=== PATIENT | female | born 1990 | race Caucasian/White ===

== ENCOUNTER 2016-09-16 17:32 | Emergency (ER) | payer MEDICARE ==
[~2016-09-16] VITALS: Wt 86.2 kg
[2016-09-16 18:33] LABS: BASO % 0.1 % (0.0-1.0); EOS % 0.4 % (1.0-4.0); HEMATOCRIT 34.9 % (37.0-47.0); HEMOGLOBIN 12.1 g/dl (12.0-16.0); LYMPH # 1.8 10*3/uL (1.3-4.4); LYMPH % 21.6 % (27.0-41.0); MEAN CELL VOLUME 83.9 fl (81.0-99.0); MEAN CORPUSCULAR HGB 29.1 pg (27.0-31.0); MEAN CORPUSCULAR HGB CONC 34.7 g/dl (33.0-37.0); MEAN PLATELET VOLUME 11.4 fl (9.6-12.3); MONO # 0.6 10*3/uL (0.1-1.0); MONO % 7.5 % (3.0-9.0); PLATELET COUNT AUTOMATED 245 10*3/uL (130-400); RED BLOOD COUNT 4.16 10*6/uL (4.10-5.10); WHITE BLOOD COUNT 8.5 10*3/uL (4.8-10.8)
[2016-09-16 18:48] LABS: ALBUMIN 3.1 gm/dl (3.1-4.5); ALKALINE PHOSPHATASE 127 U/L (45-117); BILIRUBIN, TOTAL 0.2 mg/dl (0.2-1.0); BUN 9 mg/dl (7-24); CARBON DIOXIDE 25 mmol/L (21-32); CHLORIDE 106 mmol/L (98-107); EST GLOM FILT AFRICAN AMERICAN > 60 ml/min; GLUCOSE 85 mg/dL (65-99); POTASSIUM 3.5 mmol/L (3.5-5.1); SGOT/AST 19 IU/L (3-35); SGPT/ALT 15 U/L (12-78); SODIUM 138 mmol/L (136-145); TOTAL PROTEIN 7.3 gm/dL (6.4-8.2)
[2016-09-16 19:27] LABS: BILIRUBIN NEGATIVE (NEGATIVE); BLOOD 3+ (NEGATIVE); CLARITY SL CLOUDY (CLEAR); COLOR YELLOW (YELLOW); GLUCOSE NEGATIVE (NEGATIVE); KETONE NEGATIVE (NEGATIVE); LEUKO ESTERASE 3+ (NEGATIVE); NITRITE NEGATIVE (NEGATIVE); PH 5.5 (5.0-9.0); PROTEIN TRACE (NEGATIVE); SPECIFIC GRAVITY >= 1.030 (1.005-1.030); UROBILINOGEN 0.2 E.U./dl (0.2-1.0)
[2016-09-16 19:33] LABS: BACTERIA 4+; URINE REFLEX COMMENT YES (NO)
[2016-09-16 19:34] LABS: WBC 51-100 wbc/hpf (0-5)
[2016-09-16 19:35] LABS: RBC 31-40 rbc/hpf (0-2)
[2016-09-16 19:45] VITALS: BP 126/75
[2016-09-16] MEDS ORDERED: BACTRIM DS 8001 TA1 PO (19:57)
== END 2016-09-16 20:13 | disposition home or self-care (01) ==
LOC: ED 17:32
PROVIDERS: Student in an Organized Health Care Education/Training Program
DX: N39.0 Urinary tract infection, site not specified (principal); R53.1 Weakness; R07.89 Other chest pain; R42 Dizziness and giddiness

== ENCOUNTER 2017-01-09 12:50 | Emergency (ER) | payer MEDICARE ==
[~2017-01-09] VITALS: Ht 170.1 cm; Wt 72.6 kg
[~2017-01-09 12:50] MED LIST: BACTRIM DS 8001 TA1 PO
[2017-01-09 13:25] VITALS: BP 131/66
[2017-01-09] MEDS ORDERED: CEPHALEXIN500 M1 PO (13:53)
[2017-01-09] MEDS ORDERED: NAPROSYN500 MG PO (13:53)
== END 2017-01-09 15:07 | disposition home or self-care (01) ==
LOC: ED 12:50
DX: H60.393 Other infective otitis externa, bilateral (principal); R59.0 Localized enlarged lymph nodes

== ENCOUNTER → 2017-01-22 | Emergency (ER) | payer MEDICARE ==
[~2017-01-22] VITALS: Ht 170.1 cm; Wt 93.9 kg
[~2017-01-22] MED LIST changes: +CEPHALEXIN500 M1 PO; +DOXYCYCLINE100 M3 PO; +NAPROSYN500 MG PO
[2017-01-22 12:16] VITALS: BP 118/80
== END ==
LOC: ED 12:11
DX: A64 Unspecified sexually transmitted disease (principal)

== ENCOUNTER 2017-02-03 20:13 | Emergency (ER) | payer MEDICARE, MEDICAID ==
[~2017-02-03] VITALS: Ht 172.7 cm; Wt 92.1 kg
[2017-02-03 20:32] VITALS: BP 136/75
[2017-02-03 20:45] LABS: BILIRUBIN NEGATIVE (NEGATIVE); BLOOD 2+ (NEGATIVE); CLARITY SL CLOUDY (CLEAR); COLOR YELLOW (YELLOW); GLUCOSE NEGATIVE (NEGATIVE); KETONE TRACE (NEGATIVE); LEUKO ESTERASE 2+ (NEGATIVE); NITRITE NEGATIVE (NEGATIVE); SPECIFIC GRAVITY 1.025 (1.005-1.030); UROBILINOGEN 0.2 E.U./dl (0.2-1.0)
[2017-02-03 20:54] LABS: BACTERIA 3+; EPITHELIAL CELLS 21-30
[2017-02-03 20:56] LABS: RBC 21-30 rbc/hpf (0-2)
[2017-02-03 20:57] LABS: WBC 31-40 wbc/hpf (0-5)
[2017-02-03] MEDS ORDERED: MACROBID100 M1 PO (21:44)
== END 2017-02-03 21:09 | disposition home or self-care (01) ==
LOC: ED 20:13
PROVIDERS: Student in an Organized Health Care Education/Training Program
DX: B37.3 Candidiasis of vulva and vagina (principal); N39.0 Urinary tract infection, site not specified

== ENCOUNTER → 2021-09-08 | Outpatient (CLI) | payer MEDICARE ==
[~2021-09-08] MED LIST changes: +MACROBID100 M1 PO
[2021-09-08 16:44] LABS: BUN 13 mg/dl (7-24); CREATININE 0.96 mg/dL (0.55-1.02)
== END | disposition home or self-care (01) ==
LOC: CT 16:00 → LAB 16:06
PROVIDERS: ATTEND Nurse Practitioner Family
DX: N26.1 Atrophy of kidney (terminal) (principal)

== ENCOUNTER 2022-04-09 10:43 | Emergency (ER) | payer OTHER ==
[~2022-04-09] VITALS: Ht 172.7 cm; Wt 108.9 kg
[2022-04-09 10:54] VITALS: BP 134/82
[2022-04-09 11:02] LABS: BILIRUBIN Negative (Negative); BLOOD 3+ (Negative); CLARITY Cloudy (Clear); COLOR Orange (Yellow); GLUCOSE Negative (Negative); KETONE Trace (Negative); LEUKO ESTERASE 2+ (Negative); NITRITE Negative (Negative); SPECIFIC GRAVITY 1.025 (1.001-1.030)
[2022-04-09 11:20] LABS: BACTERIA 3+; EPITHELIAL CELLS TNTC; RBC TNTC rbc/hpf (0-2); WBC TNTC wbc/hpf (0-5)
[2022-04-09] MEDS ORDERED: CIPRO500 MG PO (11:30)
== END 2022-04-09 11:36 | disposition home or self-care (01) ==
LOC: ED 10:43
PROVIDERS: Nurse Practitioner Family
DX: N39.0 Urinary tract infection, site not specified (principal); F31.9 Bipolar disorder, unspecified

== ENCOUNTER 2022-10-03 19:07 | Emergency (ER) | payer OTHER ==
[~2022-10-03] VITALS: Ht 172.7 cm; Wt 110.2 kg
[~2022-10-03 19:07] MED LIST changes: +CIPRO500 MG PO
[2022-10-03 19:26] VITALS: BP 88/59
[2022-10-03 20:05] LABS: BASO % 0.3 % (0.0-1.0); EOS # 0.1 10*3/uL (0.0-0.4); EOS % 0.6 % (1.0-4.0); HEMATOCRIT 40.8 % (37.0-47.0); LYMPH # 2.9 10*3/uL (1.3-4.4); LYMPH % 28.6 % (27.0-41.0); MEAN CELL VOLUME 85.5 fl (81.0-99.0); MEAN CORPUSCULAR HGB 29.4 pg (27.0-31.0); MEAN CORPUSCULAR HGB CONC 34.3 g/dl (33.0-37.0); MONO # 0.6 10*3/uL (0.1-1.0); MONO % 5.4 % (3.0-9.0); NEUT # 6.5 10*3/uL (2.3-7.9); NEUT % 64.8 % (47.0-73.0); PLATELET COUNT AUTOMATED 270 10*3/uL (130-400); RED BLOOD COUNT 4.77 10*6/uL (4.10-5.10); RED CELL DISTRI WIDTH 13.2 % (0-14.5); WHITE BLOOD COUNT 10.1 10*3/uL (4.8-10.8)
[2022-10-03 20:08] LABS: BILIRUBIN Negative (Negative); BLOOD 3+ (Negative); CLARITY Cloudy (Clear); COLOR Orange (Yellow); GLUCOSE Negative (Negative); KETONE Negative (Negative); LEUKO ESTERASE 1+ (Negative); NITRITE Negative (Negative); PH 6.5 (4.5-8.0)
[2022-10-03 20:17] LABS: BACTERIA 1+; RBC 41-50 rbc/hpf (0-2)
[2022-10-03 20:20] LABS: ACT PARTIAL THROMBO TIME 29.9 SECONDS (20.0-32.1); INTERNATIONAL NORM RATIO 0.9 (2.0-3.5)
[2022-10-03 20:31] LABS: ALKALINE PHOSPHATASE 116 U/L (46-116); BUN 12 mg/dl (9-23); CHLORIDE 108 mmol/L (98-107); LIPASE 36 U/L (12-53); POTASSIUM 3.8 mmol/L (3.4-5.1); SGPT/ALT 27 U/L (10-49); TOTAL PROTEIN 6.9 gm/dL (6.0-8.0)
[2022-10-03] MEDS ORDERED: CIPRO500 MG PO (22:56)
== END 2022-10-03 23:04 | disposition home or self-care (01) ==
LOC: ED 19:07
PROVIDERS: Internal Medicine
DX: N39.0 Urinary tract infection, site not specified (principal); Z79.2 Long term (current) use of antibiotics; Z79.899 Other long term (current) drug therapy

== ENCOUNTER 2023-05-10 14:23 | Emergency (ER) | payer OTHER, MEDICARE, MEDICAID ==
[~2023-05-10] VITALS: Ht 170.1 cm; Wt 118.4 kg
[2023-05-10 14:35] VITALS: BP 136/90
== END 2023-05-10 17:06 | disposition home or self-care (01) ==
LOC: ED 14:23
DX: S63.501A Unspecified sprain of right wrist, initial encounter (principal); F31.9 Bipolar disorder, unspecified; M25.551 Pain in right hip; M79.631 Pain in right forearm; Z87.891 Personal history of nicotine dependence; W01.10XA Fall on same level from slipping, tripping and stumbling with subsequent striking against unspecified object, initial encounter; Y93.89 Activity, other specified; Y92.89 Other specified places as the place of occurrence of the external cause; Y99.0 Civilian activity done for income or pay

== ENCOUNTER 2023-08-13 16:37 | Emergency (ER) | payer MEDICARE, MEDICAID ==
[~2023-08-13] VITALS: Ht 170.1 cm
[2023-08-13 16:45] VITALS: BP 137/79
[2023-08-13] MEDS ORDERED: AMOX-CLAV 875-1 EACH PO (16:53)
[2023-08-13] MEDS ORDERED: Tdap Vaccine 0.5 ML SYR (Adult Vaccine) IM ONE (16:55)
[2023-08-13] MEDS ORDERED: ACETAMINOPHEN 325 MG TAB PO ONE (16:55)
== END 2023-08-13 17:05 | disposition home or self-care (01) ==
LOC: ED 16:37
DX: S91.332A Puncture wound without foreign body, left foot, initial encounter (principal); Z79.2 Long term (current) use of antibiotics; Z79.899 Other long term (current) drug therapy; W22.09XA Striking against other stationary object, initial encounter; Y93.89 Activity, other specified; Y92.89 Other specified places as the place of occurrence of the external cause; Y99.8 Other external cause status

== ENCOUNTER → 2023-12-28 | Outpatient (CLI) | payer MEDICARE, MEDICAID ==
[~2023-12-28] MED LIST changes: +AMOX-CLAV 875-1 EACH PO
== END | disposition home or self-care (01) ==
LOC: US 08:21
PROVIDERS: ATTEND Nurse Practitioner Family
DX: R16.0 Hepatomegaly, not elsewhere classified (principal); K76.0 Fatty (change of) liver, not elsewhere classified; Z23 Encounter for immunization; E78.2 Mixed hyperlipidemia; R10.9 Unspecified abdominal pain

== ENCOUNTER 2024-02-29 21:20 | Emergency (ER) | payer MEDICARE, MEDICAID ==
[~2024-02-29] VITALS: Ht 170.1 cm; Wt 125.2 kg
[2024-02-29 21:26] VITALS: BP 121/58
[2024-02-29 21:58] LABS: BILIRUBIN Negative (Negative); BLOOD 3+ (Negative); CLARITY Cloudy (Clear); COLOR Yellow (Yellow); GLUCOSE Negative (Negative); KETONE Negative (Negative); LEUKO ESTERASE 2+ (Negative); NITRITE Negative (Negative); PH 6.5 (4.5-8.0)
[2024-02-29 22:00] LABS: BASO % 0.3 % (0.0-1.0); EOS # 0.1 10*3/uL (0.0-0.4); EOS % 1.2 % (1.0-4.0); HEMATOCRIT 41.9 % (37.0-47.0); MEAN CELL VOLUME 87.3 fl (81.0-99.0); MEAN CORPUSCULAR HGB 28.8 pg (27.0-31.0); MEAN CORPUSCULAR HGB CONC 32.9 g/dl (33.0-37.0); MEAN PLATELET VOLUME 11.1 fl (9.6-12.3); MONO # 0.7 10*3/uL (0.1-1.0); MONO % 6.2 % (3.0-9.0); NEUT # 7.7 10*3/uL (2.3-7.9); NEUT % 64.5 % (47.0-73.0); PLATELET COUNT AUTOMATED 294 10*3/uL (130-400); RED CELL DISTRI WIDTH 12.9 % (0-14.5); WHITE BLOOD COUNT 11.9 10*3/uL (4.8-10.8)
[2024-02-29 22:15] LABS: BUN 14 mg/dl (9-23); CHLORIDE 106 mmol/L (98-107); POTASSIUM 3.8 mmol/L (3.4-5.1)
[2024-02-29 22:25] LABS: WBC 31-40 wbc/hpf (0-5)
[2024-02-29] MEDS ORDERED: Ciprofloxacin Hydrochloride 500 MG TAB PO ONE (22:25)
[2024-02-29] MEDS ORDERED: CIPRO500 MG PO (22:34)
== END 2024-02-29 22:38 | disposition home or self-care (01) ==
LOC: ED 21:20
PROVIDERS: Internal Medicine
DX: N39.0 Urinary tract infection, site not specified (principal); Z79.899 Other long term (current) drug therapy

== ENCOUNTER 2024-07-17 21:42 | Emergency (ER) | payer MEDICAID ==
[~2024-07-17] VITALS: Ht 170.1 cm; Wt 119.7 kg
[2024-07-17 21:44] VITALS: BP 141/74
[2024-07-17] MEDS ORDERED: SODIUM CHLORIDE 0.9% 1,000 ML IV ONE (21:50)
[2024-07-17 22:02] LABS: BASO % 0.2 % (0.0-1.0); EOS # 0.1 10*3/uL (0.0-0.4); EOS % 1.2 % (1.0-4.0); HEMATOCRIT 40.8 % (37.0-47.0); MEAN CELL VOLUME 83.6 fl (81.0-99.0); MEAN CORPUSCULAR HGB 28.1 pg (27.0-31.0); MEAN CORPUSCULAR HGB CONC 33.6 g/dl (33.0-37.0); MEAN PLATELET VOLUME 10.9 fl (9.6-12.3); MONO # 0.7 10*3/uL (0.1-1.0); MONO % 7.6 % (3.0-9.0); NEUT # 6.2 10*3/uL (2.3-7.9); NEUT % 63.6 % (47.0-73.0); PLATELET COUNT AUTOMATED 272 10*3/uL (130-400); RED BLOOD COUNT 4.88 10*6/uL (4.10-5.10); RED CELL DISTRI WIDTH 13.1 % (0-14.5); WHITE BLOOD COUNT 9.7 10*3/uL (4.8-10.8)
[2024-07-17 22:21] LABS: BILIRUBIN Negative (Negative); BLOOD 3+ (Negative); CLARITY Clear (Clear); COLOR Yellow (Yellow); GLUCOSE Negative (Negative); KETONE Negative (Negative); LEUKO ESTERASE 2+ (Negative); NITRITE Negative (Negative); PH 5.5 (4.5-8.0)
[2024-07-17 22:22] LABS: BUN 18 mg/dl (9-23); CHLORIDE 105 mmol/L (98-107); POTASSIUM 3.5 mmol/L (3.4-5.1)
[2024-07-17 22:29] LABS: EPITHELIAL CELLS 21-30
[2024-07-17 22:30] LABS: BACTERIA 2+; RBC 31-40 rbc/hpf (0-2); WBC 21-30 wbc/hpf (0-5)
[2024-07-17] MEDS ORDERED: cefTRIAXone Sodium 1 GM/10 ML SYR IV ONE (22:40)
[2024-07-17] MEDS ORDERED: OMNICEF300 MG PO (22:44)
== END 2024-07-17 22:57 | disposition home or self-care (01) ==
LOC: ED 21:42
PROVIDERS: Nurse Practitioner Family
DX: R55 Syncope and collapse (principal); N39.0 Urinary tract infection, site not specified; E86.0 Dehydration; F31.9 Bipolar disorder, unspecified; Z79.899 Other long term (current) drug therapy